=== PATIENT | female | born 1965 | race Caucasian/White ===

== ENCOUNTER 2017-02-28 02:40 | Inpatient (IN) | payer MEDICAID, OTHER ==
[~2017-02-28] VITALS: Ht 160 cm; Wt 119.3 kg
[~2017-02-28 02:40] MED LIST: BENA40TA3 PO; FERR1TAB25 PO; LEVO150T8 PO; LORA-986 PO; PANT40TA4 PO
[2017-02-28] MEDS ORDERED: ONDANSETRON HCL 4MG/2ML VIAL IV STA (06:12)
[2017-02-28] MEDS ORDERED: SODIUM CHLORIDE 0.9% 1,000 ML IV ONE (06:12)
[2017-02-28] MEDS ORDERED: MORPHINE SULFATE 4 MG/ML CPJ (NOT FOR IM USE) IV STA (06:12)
[2017-02-28] MEDS ORDERED: FAMOTIDINE 20MG/2ML VIAL IV ONE (06:30)
[2017-02-28 06:50] LABS: GLUCOSE URINE NEGATIVE (NEGATIVE); KETONES URINE NEGATIVE (NEGATIVE); LEUKOCYTE ESTERASE URINE NEGATIVE (NEGATIVE); NITRITE URINE NEGATIVE (NEGATIVE); OCCULT BLOOD URINE TRACE (NEGATIVE); PH URINE 6.5 (4.5-8.0); PROTEIN URINE 1+ (NEGATIVE); SPECIFIC GRAVITY URINE 1.025 (1.005-1.030)
[2017-02-28 06:55] LABS: CLARITY URINE SL HAZY (CLEAR); COLOR URINE YELLOW (YELLOW)
[2017-02-28 07:33] LABS: BASOPHILS % 0.4 % (0.0-2.0); EOSINOPHILS % 0.3 % (0.0-5.0); HEMATOCRIT. 35.3 % (36.0-48.0); HEMOGLOBIN. 11.7 g/dL (12.0-16.0); LYMPHOCYTES % 21.6 % (20.0-50.0); MEAN CORPUSCULAR HEMOGLOBIN 29.1 pg (28.0-32.0); MEAN CORPUSCULAR VOLUME 87.8 fL (81.0-99.0); MEAN PLATELET VOLUME 9.1 fl (7.4-10.4); MONOCYTES % 4.9 % (2.0-8.0); NEUTROPHILS % 72.8 % (40.0-76.0); PLATELET 229 x1000/uL (130-400); RED BLOOD CELL COUNT 4.02 mill/uL (4.2-5.4); RED CELL DISTRIBUTION WIDTH 14.7 % (11.6-14.6)
[2017-02-28 07:35] LABS: CHLORIDE 105 mEq/L (98-107)
[2017-02-28 07:41] LABS: PARTIAL THROMBOPLASTIN TIME 26.8 sec (23.4-31.0)
[2017-02-28 07:45] LABS: CARBON DIOXIDE 23 mEq/L (21-32)
[2017-02-28] MEDS ORDERED: MORPHINE SULFATE 4 MG/ML CPJ (NOT FOR IM USE) IV ONE (09:15)
[2017-02-28] MEDS ORDERED: ONDANSETRON HCL 4MG/2ML VIAL IV ONE (09:15)
[2017-02-28 11:10] VITALS: BP 140/88
[2017-02-28] MEDS ORDERED: LORAZEPAM 0.5MG TABLET PO NR (16:00)
[2017-02-28] MEDS ORDERED: ONDANSETRON HCL 4MG/2ML VIAL IV PRN (17:15)
[2017-02-28 20:00] VITALS: BP 127/64
[2017-02-28] MEDS ORDERED: LEVO100T9 PO (20:49)
[2017-02-28] MEDS: MORPHINE SULFATE 2 MG/ML CPJ (NOT FOR IM USE) IV PRN (22:31)
[2017-03-01] VITALS: BP 139/71
[2017-03-01 04:00] VITALS: BP 141/70
[2017-03-01] MEDS ORDERED: LORAZEPAM 1MG TABLET PO NR (06:00)
[2017-03-01 06:13] LABS: BASOPHILS % 0.2 % (0.0-2.0); EOSINOPHILS % 0.1 % (0.0-5.0); HEMATOCRIT. 33.8 % (36.0-48.0); HEMOGLOBIN. 11.3 g/dL (12.0-16.0); LYMPHOCYTES % 16.4 % (20.0-50.0); MEAN CORPUSCULAR HEMOGLOBIN 29.1 pg (28.0-32.0); MEAN CORPUSCULAR VOLUME 86.8 fL (81.0-99.0); MEAN PLATELET VOLUME 8.8 fl (7.4-10.4); MONOCYTES % 9.4 % (2.0-8.0); NEUTROPHILS % 73.9 % (40.0-76.0); PLATELET 238 x1000/uL (130-400); RED BLOOD CELL COUNT 3.89 mill/uL (4.2-5.4); RED CELL DISTRIBUTION WIDTH 14.9 % (11.6-14.6)
[2017-03-01 06:14] LABS: CARBON DIOXIDE 28 mEq/L (21-32); CHLORIDE 103 mEq/L (98-107)
[2017-03-01] MEDS: SODIUM CHLORIDE 0.9% 1,000 ML IV SCH ×2 (06:17→20:14)
[2017-03-01] MEDS: MORPHINE SULFATE 2 MG/ML CPJ (NOT FOR IM USE) IV PRN ×4 (06:18→20:13)
[2017-03-01 08:00] VITALS: BP 136/64
[2017-03-01] MEDS ORDERED: MEDICATION NOT ON FORMULARY EA (Benazepril Hcl 40 MG) PO SCH (09:00)
[2017-03-01] MEDS: BENAZEPRIL 20MG TABLET PO SCH (09:00)
[2017-03-01] MEDS: LEVOTHYROXINE SODIUM 100MCG TABLET PO SCH (09:53)
[2017-03-01] MEDS: PANTOPRAZOLE SODIUM 40 MG/VIAL IV SCH (10:41)
[2017-03-01] MEDS: CEFTRIAXONE 1 G PREMIX 50 ML IV SCH (15:27)
[2017-03-01 16:00] VITALS: BP 145/78
[2017-03-01 20:00] VITALS: BP 152/86
[2017-03-01] MEDS: ACETAMINOPHEN 325MG TABLET PO PRN (21:49)
[2017-03-02] VITALS: BP 138/64
[2017-03-02 04:00] VITALS: BP 153/83
[2017-03-02] MEDS: MORPHINE SULFATE 2 MG/ML CPJ (NOT FOR IM USE) IV PRN (05:44)
[2017-03-02 05:51] VITALS: BP 153/83
[2017-03-02] MEDS ORDERED: SKIN ADHESIVE 0.7 GM EA TOP ONE (07:05)
[2017-03-02] MEDS ORDERED: BUPIVACAINE HCL 0.5% (5MG/ML) 50ML ONE (07:05)
[2017-03-02] MEDS: LEVOTHYROXINE SODIUM 100MCG TABLET PO SCH (07:13)
[2017-03-02 07:16] LABS: BASOPHILS % 0.2 % (0.0-2.0); EOSINOPHILS % 0.1 % (0.0-5.0); HEMATOCRIT. 34.2 % (36.0-48.0); HEMOGLOBIN. 11.4 g/dL (12.0-16.0); LYMPHOCYTES % 10.6 % (20.0-50.0); MEAN CORPUSCULAR VOLUME 87.3 fL (81.0-99.0); MONOCYTES % 8.6 % (2.0-8.0); NEUTROPHILS % 80.5 % (40.0-76.0); PLATELET 237 x1000/uL (130-400); RED BLOOD CELL COUNT 3.92 mill/uL (4.2-5.4)
[2017-03-02 07:42] LABS: CARBON DIOXIDE 29 mEq/L (21-32); CHLORIDE 101 mEq/L (98-107)
[2017-03-02 08:00] VITALS: BP 142/75
[2017-03-02] MEDS ORDERED: MIDAZOLAM HCL 2 MG/2 ML VIAL ONE (08:51)
[2017-03-02] MEDS ORDERED: FENTANYL CITRATE/PF 50MCG/ML 2ML VIAL ONE (08:51)
[2017-03-02] MEDS ORDERED: HYDROMORPHONE HCL/PF 2MG/ML CPJ IV PRN (09:00)
[2017-03-02] MEDS ORDERED: ONDANSETRON HCL 4MG/2ML VIAL IV PRN ×3 (09:00→21:00)
[2017-03-02] MEDS: PANTOPRAZOLE SODIUM 40 MG/VIAL IV SCH (09:00)
[2017-03-02] MEDS ORDERED: MEPERIDINE HCL/PF 25MG/ML CPJ IV PRN (09:00)
[2017-03-02] MEDS ORDERED: LABETALOL HCL 20MG/4ML CARPUJECT IV PRN (09:00)
[2017-03-02] MEDS: BENAZEPRIL 20MG TABLET PO SCH (09:00)
[2017-03-02] MEDS ORDERED: MORPHINE SULFATE 2 MG/ML CPJ (NOT FOR IM USE) IV PRN (10:15)
[2017-03-02] MEDS ORDERED: PROPOFOL 200MG/20ML VIAL IV ONE (10:47)
[2017-03-02] MEDS ORDERED: ROCURONIUM BROMIDE 10MG/ML VIAL 5ML IV ONE (10:47)
[2017-03-02] MEDS ORDERED: ONDANSETRON HCL 4MG/2ML VIAL ONE (10:47)
[2017-03-02] MEDS ORDERED: SUCCINYLCHOLINE CHLORIDE 200MG/10ML VIAL IV ONE (10:47)
[2017-03-02] MEDS ORDERED: LIDOCAINE HCL 1% 20ML VIAL (Pyxis) INJ ONE (10:47)
[2017-03-02] MEDS ORDERED: DEXAMETHASONE 4MG/ML 1ML VIAL ONE (10:47)
[2017-03-02] MEDS: MORPHINE SULFATE 4 MG/ML CPJ (NOT FOR IM USE) IV PRN ×3 (14:01→20:54)
[2017-03-02] MEDS: SODIUM CHLORIDE 0.9% INJ 3ML FLUSH IVF SCH (17:10)
[2017-03-02] MEDS: DEXT 5%/0.45% NACL KCL 20MEQ/L 1,000 ML IV SCH (17:10)
[2017-03-02] MEDS: CEFTRIAXONE 1 G PREMIX 50 ML IV SCH (17:10)
[2017-03-02 17:29] VITALS: BP 129/76
[2017-03-02 20:00] VITALS: BP 125/66
[2017-03-02] MEDS: ACETAMINOPHEN 325MG TABLET PO PRN (20:53)
[2017-03-03] VITALS: BP 124/66
[2017-03-03] MEDS ORDERED: ONDANSETRON HCL 4MG/2ML VIAL IV PRN
[2017-03-03] MEDS: MORPHINE SULFATE 4 MG/ML CPJ (NOT FOR IM USE) IV PRN ×3 (00:06→07:00)
[2017-03-03] MEDS: SODIUM CHLORIDE 0.9% INJ 3ML FLUSH IVF SCH ×4 (00:06→23:31)
[2017-03-03] MEDS: DEXT 5%/0.45% NACL KCL 20MEQ/L 1,000 ML IV SCH (03:40)
[2017-03-03 04:00] VITALS: BP 116/65
[2017-03-03 07:08] LABS: BASOPHILS % 0.1 % (0.0-2.0); EOSINOPHILS % 0.1 % (0.0-5.0); HEMATOCRIT. 30.9 % (36.0-48.0); HEMOGLOBIN. 10.2 g/dL (12.0-16.0); LYMPHOCYTES % 13.8 % (20.0-50.0); MEAN CORPUSCULAR VOLUME 87.5 fL (81.0-99.0); MEAN PLATELET VOLUME 8.8 fl (7.4-10.4); MONOCYTES % 10.7 % (2.0-8.0); NEUTROPHILS % 75.3 % (40.0-76.0); PLATELET 210 x1000/uL (130-400); RED BLOOD CELL COUNT 3.53 mill/uL (4.2-5.4); RED CELL DISTRIBUTION WIDTH 14.7 % (11.6-14.6)
[2017-03-03 08:02] LABS: CARBON DIOXIDE 28 mEq/L (21-32); CHLORIDE 100 mEq/L (98-107)
[2017-03-03] MEDS: LEVOTHYROXINE SODIUM 100MCG TABLET PO SCH (08:47)
[2017-03-03] MEDS: BENAZEPRIL 20MG TABLET PO SCH (08:52)
[2017-03-03] MEDS: PANTOPRAZOLE SODIUM 40 MG/VIAL IV SCH (09:00)
[2017-03-03 09:17] VITALS: BP 132/69
[2017-03-03] MEDS: HYDROCODONE/ACETAMINOPHEN 5/325MG TABLET PO PRN ×4 (11:15→20:14)
[2017-03-03] MEDS ORDERED: POTASSIUM CHLORIDE 20MEQ TABLET SR PO SCH (12:00)
[2017-03-03 17:19] VITALS: BP 102/54
[2017-03-03 20:00] VITALS: BP 112/63
[2017-03-03] MEDS: CEFTRIAXONE 1 G PREMIX 50 ML IV SCH (20:23)
[2017-03-04] VITALS: BP 103/55
[2017-03-04] MEDS: HYDROCODONE/ACETAMINOPHEN 5/325MG TABLET PO PRN ×3 (01:59→15:09)
[2017-03-04] MEDS: DEXT 5%/0.45% NACL KCL 20MEQ/L 1,000 ML IV SCH ×2 (03:13→13:00)
[2017-03-04 04:00] VITALS: BP 104/49
[2017-03-04] MEDS: SODIUM CHLORIDE 0.9% INJ 3ML FLUSH IVF SCH ×2 (06:07→14:00)
[2017-03-04] MEDS: LEVOTHYROXINE SODIUM 100MCG TABLET PO SCH (06:07)
[2017-03-04 06:41] LABS: BASOPHILS % 0.3 % (0.0-2.0); EOSINOPHILS % 1.5 % (0.0-5.0); HEMATOCRIT. 32.1 % (36.0-48.0); HEMOGLOBIN. 10.6 g/dL (12.0-16.0); LYMPHOCYTES % 23.4 % (20.0-50.0); MEAN CORPUSCULAR HEMOGLOBIN 29.1 pg (28.0-32.0); MEAN CORPUSCULAR VOLUME 87.9 fL (81.0-99.0); MEAN PLATELET VOLUME 8.6 fl (7.4-10.4); MONOCYTES % 8.5 % (2.0-8.0); NEUTROPHILS % 66.3 % (40.0-76.0); PLATELET 214 x1000/uL (130-400); RED BLOOD CELL COUNT 3.65 mill/uL (4.2-5.4)
[2017-03-04 07:05] LABS: CARBON DIOXIDE 28 mEq/L (21-32); CHLORIDE 103 mEq/L (98-107)
[2017-03-04 08:00] VITALS: BP 108/65
[2017-03-04] MEDS: BENAZEPRIL 20MG TABLET PO SCH (08:50)
[2017-03-04] MEDS: PANTOPRAZOLE SODIUM 40 MG/VIAL IV SCH (08:56)
[2017-03-04 11:51] VITALS: BP 108/65
[2017-03-04 15:09] VITALS: BP 108/65
== END 2017-03-04 16:00 | disposition home or self-care (01) | DRG 263 ==
LOC: ER 06:19 → EDBEDREQ 09:11 → ENRESERV 10:05 → 6EST 11:31
PROVIDERS: ADMIT Internal Medicine; ATTEND Internal Medicine
PROC: 0FT44ZZ Resection of Gallbladder, Percutaneous Endoscopic Approach (ICD-10-PCS; principal; 2017-03-02 09:00)
DX: K80.00 Calculus of gallbladder with acute cholecystitis without obstruction (principal); K76.0 Fatty (change of) liver, not elsewhere classified; I10 Essential (primary) hypertension; E03.9 Hypothyroidism, unspecified; N39.0 Urinary tract infection, site not specified; E87.6 Hypokalemia; Z79.899 Other long term (current) drug therapy
CPT/HCPCS: 36415; 74010; 74181; 76705; 78227; 80048; 80053; 81001; 81025; 83690; 85025; 85610; 85730; 87040; 87086; 88304; 96361; 96374; 96375; 96376; 99285; A9537; C1893; C9113; J0330; J0696; J1100; J1170; J2250; J2270; J2405; J2704; J3010; J3490; J7030